=== PATIENT | female | born 1990 | race American Indian/Alaskan Native ===

== ENCOUNTER 2018-02-24 11:59 | Emergency (ER) | payer OTHER ==
[2018-02-24] MEDS ORDERED: Sodium Chloride 0.9% 1,000 ML IV ONE (12:54)
[2018-02-24] MEDS ORDERED: Morphine 4 MG/ML VIAL ONE (13:35)
[2018-02-24] MEDS ORDERED: Sodium Chloride 0.9% 1,000 ML ONE (13:36)
--- NOTE | 2018-02-24 14:07 | C.PDOC ---
History Of Present Illness 28 y/o female presents to ED with c/o right lower quadrant abdominal pain for 2- 3 days associated with nausea. Patient has history of ovarian cyst but reports pain is different and states she is on her menses, has been bleeding for 5 days. Patient denies fever, chills, back pain, dysuria, vomiting, diarrhea or any other complaints at this time. Time Seen by Provider: 02/24/18 12:38 Chief Complaint (Nursing): Abdominal Pain History Per: Patient History/Exam Limitations: no limitations Onset/Duration Of Symptoms: Days Current Symptoms Are (Timing): Still Present Location Of Pain/Discomfort: RLQ Associated Symptoms: Nausea Past Medical History Reviewed: Historical Data, Nursing Documentation, Vital Signs Vital Signs: Last Vital Signs Temp 98.7 F 02/24/18 14:23 Pulse 63 02/24/18 14:23 Resp 18 02/24/18 14:23 BP 101/71 02/24/18 14:23 Pulse Ox 97 02/24/18 18:57 - Medical History PMH: No Chronic Diseases Surgical History: No Surg Hx Family History: States: No Known Family Hx - Social History Hx Alcohol Use: No Hx Substance Use: No - Immunization History Hx Tetanus Toxoid Vaccination: No Hx Influenza Vaccination: No Hx Pneumococcal Vaccination: No Review Of Systems Constitutional: Negative for: Fever Gastrointestinal: Positive for: Nausea, Abdominal Pain. Negative for: Vomiting , Diarrhea Genitourinary: Negative for: Dysuria Musculoskeletal: Negative for: Back Pain Skin: Negative for: Rash Physical Exam - Physical Exam Appears: Non-toxic, No Acute Distress Skin: Warm, Dry, No Rash Head: Atraumatic, Normacephalic Eye(s): bilateral: Normal Inspection Oral Mucosa: Moist Neck: Supple Cardiovascular: Rhythm Regular Respiratory: Normal Breath Sounds, No Rales, No Rhonchi, No Wheezing Gastrointestinal/Abdominal: Soft, Tenderness (RLQ), No Guarding, No Rebound Back: No CVA Tenderness Neurological/Psych: Oriented x3, Normal Speech, Normal Cognition ED Course And Treatment - Laboratory Results Result Diagrams: 02/24/18 14:11 02/24/18 14:11 O2 Sat by Pulse Oximetry: 97 (RA) Pulse Ox Interpretation: Normal - Other Rad Abdomen/Pelvis/Transvaginal US X-Ray: Viewed By Me, Read By Radiologist Interpretation: 02/24/2018. HISTORY: Right lower abdominal pelvic pain. Ovarian rupture, torsion suspected. LMP 02/19/2018. COMPARISON: February. CT abdomen and pelvis. TECHNIQUE: Transabdominal, transvaginal. Real - time technique with 2D, duplex and color Doppler. FINDINGS: UTERUS: Measures 3 x 3.9 x 6.6 cm. Normal in size and appearance. No fibroid or other mass lesion seen. ENDOMETRIUM: Measures 6.0 mm in diameter. No ultrasound findings to suggest gestational sac, fluid, debris, mass or polyp or other pathologic process within the endometrium. CERVIX: No cervical abnormality identified. RIGHT OVARY: Measures 4.1 x 5.1 x 5.1 cm. No solid mass. Normal flow. Solid mass, well-circumscribed perhaps debris laden and hemorrhagic cyst 2.6 x 3.3 x 3.1 cm. LEFT OVARY: Measures 2.5 x 3.5 x 4 cm. No solid mass. Normal flow. FREE FLUID: A pocket of fluid identified above the urinary bladder, midline. This pocket measures 2.9 x 8.1 cm. OTHER FINDINGS: None. IMPRESSION: No evidence of adnexal torsion. Moderate volume, fluid pocket in the pelvis adjacent to an above the uterus, finding confirmed on recent CT scan. Mass likely complex (hemorrhagic) cyst in the right adnexa. - CT Scan/US CT Abdomen/Pelvis Other Rad Studies (CT/US): Read By Radiologist, Radiology Report Reviewed CT/US Interpretation: 02/24/2018. PROCEDURE: CT Abdomen and Pelvis with contrast. HISTORY: severe RLQ abd pain, r/o appendicitis. COMPARISON: None available. TECHNIQUE: Contrast dose: 100 mL Visipaque 320. Radiation dose: Total exam DLP = 324.03 mGy-cm. This CT exam was performed using one or more of the following dose reduction techniques: Automated exposure control, adjustment of the mA and/or kV according to patient size, and/or use of iterative reconstruction technique. FINDINGS: LOWER THORAX: No visible consolidation, pleural effusion, or pneumothorax. LIVER: Unremarkable. GALLBLADDER AND BILE DUCTS: Unremarkable. PANCREAS: Unremarkable. SPLEEN: Unremarkable. ADRENALS: Unremarkable. KIDNEYS AND URETERS: The kidneys enhance symmetrically. No hydronephrosis or obstructing calculus identified. Too small to characterize renal hypodensities, statistically likely cysts. 1.6 cm left lower pole renal hypodensity measures approximately 20 HU, higher than expected for simple cyst. VASCULATURE: No aortic aneurysm. BOWEL: Stomach is nondistended. Lack of oral contrast limits evaluation for bowel pathology. Bowel loops appear within normal limits of caliber without evidence of obstruction. APPENDIX: The appendix measures approximately 6 mm in diameter in a retrocecal location. Gonzalez. PERITONEUM: Mild to moderate pelvic free fluid. No definite free air. LYMPH NODES: No bulky adenopathy identified. BLADDER: Unremarkable. REPRODUCTIVE: The uterus is present. Question right ovarian prominence or cysts. BONES: No acute osseous abnormality is detected. OTHER FINDINGS: None. IMPRESSION: Mild to moderate pelvic free fluid. Question right ovarian prominence or cysts. Recommend further evaluation with pelvic ultrasound. Ruptured ovarian cyst is not excluded. Additional findings as above. Medical Decision Making Medical Decision Making: On re-exam, the patient is resting comfortably. Lungs are CTA, heart is RRR, abdomen is soft, non-tender and the patient is tolerating PO well. Patient is ambulatory with steady gait. Follow up with the medical doctor within 1-2 days without fail. Return if worsened. Disposition - Disposition Referrals: Chadd Teixeira MD [Staff Provider] - Disposition: HOME/ ROUTINE Disposition Time: 18:55 Condition: STABLE Additional Instructions: Follow up with the medical doctor within 1-2 days without fail. Return if worsened. Prescriptions: Acetaminophen [Tylenol] 325 mg PO Q6 PRN #30 tab PRN Reason: Pain, Mild (1-3) Naproxen [Naprosyn] 500 mg PO BID #20 tab Instructions: Ovarian Cysts Forms: [employer] (Tajik) - Clinical Impression Clinical Impression: Hemorrhagic ovarian cyst - PA / SENIOR ARCHITECT / Resident Statement MD/DO has reviewed & agrees with the documentation as recorded. - Scribe Statement The provider has reviewed the documentation as recorded by the Chandrika Sanchez All medical record entries made by the Chandrika were at my direction and personally dictated by me. I have reviewed the chart and agree that the record accurately reflects my personal performance of the history, physical exam, medical decision making, and the department course for this patient. I have also personally directed, reviewed, and agree with the discharge instructions and disposition.
[2018-02-24 14:15] LABS: BASO % 0.8 % (0.0-2.0); EOS # 0.1 K/uL (0.0-0.7); EOS % 2.1 % (0.0-4.0); HEMOGLOBIN 12.3 g/dL (11.0-16.0); LYMPH % 36.4 % (20.0-40.0); MEAN CELL VOLUME 84.3 fL (81.0-99.0); MEAN CORPUSCULAR HEMOGLOBIN 28.4 pg (27.0-31.0); MEAN CORPUSCULAR HGB CONC 33.7 g/dL (33.0-37.0); MEAN PLATELET VOLUME 8.5 fL (7.2-11.7); MONO # 0.4 K/uL (0.0-0.8); MONO % 6.6 % (0.0-10.0); NEUT # 2.9 K/uL (1.8-7.0); NEUT % 54.1 % (50.0-75.0); RBC 4.32 Mil/uL (3.80-5.20); RED CELL DISTRIBUTION WIDTH 13.8 % (11.5-14.5); WHITE BLOOD COUNT 5.4 K/uL (4.8-10.8)
[2018-02-24 14:17] LABS: HCG,QUALITATIVE URINE NEGATIVE (NEGATIVE)
[2018-02-24 14:22] LABS: SQUAMOUS EPITHIAL 11 /hpf (0-5); URINE BACTERIA RARE (<OCC); URINE BILIRUBIN NEGATIVE (NEGATIVE); URINE BLOOD 2+ (NEGATIVE); URINE CLARITY Hazy (Clear); URINE COLOR Amber (YELLOW); URINE GLUCOSE (UA) NORMAL (Normal); URINE LEUKOCYTE ESTERASE NEG Leu/uL (Negative); URINE PROTEIN NEGATIVE (NEGATIVE); URINE UROBILINOGEN NORMAL mg/dL (0.2-1.0)
[2018-02-24 14:24] VITALS: RESP 18
[2018-02-24 14:26] LABS: ALB/GLOB RATIO 1.2 (1.0-2.1); ALBUMIN 4.4 g/dL (3.5-5.0); ALT/SGPT 22 U/L (9-52); AST/SGOT 18 U/L (14-36); BLOOD UREA NITROGEN 13 mg/dL (7-17); CALCIUM 9.4 mg/dl (8.6-10.4); GFR NON-AFRICAN AMERICAN > 60; LIPASE 77 U/L (23-300)
[2018-02-24] MEDS ORDERED: Iodixanol 320 MG/ML 100 ML BOTTLE IV ONE (15:14)
--- NOTE | 2018-02-24 17:15 | CT ---
Date of service: 02/24/2018 PROCEDURE: CT Abdomen and Pelvis with contrast HISTORY: severe RLQ abd pain, r/o appendicitis COMPARISON: None available. TECHNIQUE: Contrast dose: 100 mL Visipaque 320 Radiation dose: Total exam DLP = 324.03 mGy-cm. This CT exam was performed using one or more of the following dose reduction techniques: Automated exposure control, adjustment of the mA and/or kV according to patient size, and/or use of iterative reconstruction technique. FINDINGS: LOWER THORAX: No visible consolidation, pleural effusion, or pneumothorax. LIVER: Unremarkable. GALLBLADDER AND BILE DUCTS: Unremarkable. PANCREAS: Unremarkable. SPLEEN: Unremarkable. ADRENALS: Unremarkable. KIDNEYS AND URETERS: The kidneys enhance symmetrically. No hydronephrosis or obstructing calculus identified. Too small to characterize renal hypodensities, statistically likely cysts. 1.6 cm left lower pole renal hypodensity measures approximately 20 HU, higher than expected for simple cyst. VASCULATURE: No aortic aneurysm. BOWEL: Stomach is nondistended. Lack of oral contrast limits evaluation for bowel pathology. Bowel loops appear within normal limits of caliber without evidence of obstruction. APPENDIX: The appendix measures approximately 6 mm in diameter in a retrocecal location. Gonzalez PERITONEUM: Mild to moderate pelvic free fluid. No definite free air. LYMPH NODES: No bulky adenopathy identified. BLADDER: Unremarkable. REPRODUCTIVE: The uterus is present. Question right ovarian prominence or cysts. BONES: No acute osseous abnormality is detected. OTHER FINDINGS: None. IMPRESSION: Mild to moderate pelvic free fluid. Question right ovarian prominence or cysts. Recommend further evaluation with pelvic ultrasound. Ruptured ovarian cyst is not excluded. Additional findings as above. Findings discussed with Rossy Alejo on 02/24/18 at 5:11 p.m.
--- NOTE | 2018-02-24 18:54 | US ---
Date of service: 02/24/2018 HISTORY: Right lower abdominal pelvic pain. Ovarian rupture, torsion suspected. LMP 02/19/2018. COMPARISON: February 24, 2018. CT abdomen and pelvis TECHNIQUE: Transabdominal, transvaginal. Real -time technique with 2D, duplex and color Doppler. FINDINGS: UTERUS: Measures 3 x 3.9 x 6.6 cm. Normal in size and appearance. No fibroid or other mass lesion seen. ENDOMETRIUM: Measures 6.0 mm in diameter. No ultrasound findings to suggest gestational sac, fluid, debris, mass or polyp or other pathologic process within the endometrium. CERVIX: No cervical abnormality identified. RIGHT OVARY: Measures 4.1 x 5.1 x 5.1 cm. No solid mass. Normal flow. Solid mass, well-circumscribed perhaps debris laden and hemorrhagic cyst 2.6 x 3.3 x 3.1 cm. LEFT OVARY: Measures 2.5 x 3.5 x 4 cm. No solid mass. Normal flow. FREE FLUID: A pocket of fluid identified above the urinary bladder, midline. This pocket measures 2.9 x 8.1 cm. OTHER FINDINGS: None. IMPRESSION: No evidence of adnexal torsion. Moderate volume, fluid pocket in the pelvis adjacent to an above the uterus, finding confirmed on recent CT scan. Mass likely complex (hemorrhagic) cyst in the right adnexa.
[2018-02-24 19:15] VITALS: BP 101/69; PULSE 71; TEMP 98.6
[2018-02-25 21:12] VITALS: O2SAT 97
== END 2018-02-24 19:15 | disposition home or self-care (01) ==
LOC: C.ER 11:59
DX: N83.201 Unspecified ovarian cyst, right side (principal)
CPT/HCPCS: 74177; 76830; 76856; 80053; 81001; 83690; 84703; 85025; 96361; 96374; 96375; 99285; J1885; J2270; J2405; J7030; Q9967